=== PATIENT | female | born 1930 | race Caucasian/White ===

== ENCOUNTER 2019-10-14 12:45 | Inpatient (IN) | payer MEDICARE, BC ==
[2019-10-14] MEDS ORDERED: Carboxymethylcellulose Sodium 0.5% Ophth Soln 15 ML Bottle EYEBOTH PRN (14:08)
[2019-10-14] MEDS ORDERED: Polyvinyl Alcohol 1.4%/Povidone 0.6% Ophth Soln 0.4 ML Box of 30 EYEBOTH PRN (14:12)
--- NOTE | 2019-10-14 15:16 | PCM.HP.2 ---
H&P History of Present Illness - General Date of Service: 10/14/19 Admit Problem/Dx: Admission Diagnosis/Problem Admission Diagnosis/Problem Fracture of left pelvis Source of Information: Patient, Old Records, Provider - History of Present Illness Initial Comments - Free Text/Narative: Elaina transferred from [facility] for swing bed placement for rehab services. She sustained a fall on 10/10, this had been her second fall within the past week, was found to have left sacral fracture that extends into the left SI joint, Orthopedic recommended conservative management with PT/OT. She found to have UTI with E. coli., was started on Ciprofloxacin 250 mg bid on 10/11 evening, received 4 doses at [facility], last dose this morning. She had hypokalemia which was corrected during her acute stay. Hemoglobin remained stable at 10. She has bruising on her left buttock/sacral area, left greene. 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 Lives independently at home alone, plan to go home with her daughter once ready for discharge. Pain has been controlled with Lidocaine patches(2) to sacral area, Tylenol and Tramadol as needed. She last took Tramadol this morning about 945 per patient and took 2 Tylenol at 3468-7930 prior to arrival to [place]. She is very hard of hearing, has bilateral hearing aids in place. - Related Data Allergies/Adverse Reactions: Allergies Allergy/AdvReac Type Severity Reaction Status Date / Time acetaminophen Allergy Confusion Verified 10/14/19 14:13 [From Tylenol PM] codeine Allergy Confusion Verified 10/14/19 14:13 diphenhydramine Allergy Confusion Verified 10/14/19 14:13 [From Benadryl Allergy] lorazepam [From Ativan] Allergy Confusion Verified 10/14/19 14:13 promethazine [From Phenergan] Allergy Confusion Verified 10/14/19 14:14 Home Medications: Home Meds Acetaminophen 650 mg PO TID 10/14/19 [History] Aspirin [Ecotrin EC] 325 mg PO BEDTIME 10/14/19 [History] Cholecalciferol (Vitamin D3) [Vitamin D3] 2,000 unit PO DAILY 10/14/19 [History] Docusate Sodium [Colace] 100 mg PO BID PRN 10/14/19 [History] Escitalopram [Lexapro] 10 mg PO BEDTIME 10/14/19 [History] Furosemide 80 mg PO DAILY 10/14/19 [History] Glycerin/Propylene Glycol [Artificial Tears Drops] 1 drop EYEBOTH BID PRN 10/14/19 [History] Lidocaine 5% [Lidoderm 5%] 2 patch TOP DAILY 10/14/19 [History] Lutein/Min/Vit C/Vit E Acetate [Ocuvite Lutein] 1 cap PO DAILY 10/14/19 [History] Multivitamin [Multivitamins] 1 each PO DAILY 10/14/19 [History] Pantoprazole [ProTONIX] 40 mg PO DAILY 10/14/19 [History] Potassium Chloride 20 meq PO DAILY 10/14/19 [History] Past Medical History HEENT History: Reports: Cataract, Hard of Hearing, Impaired Vision, Macular Degeneration Cardiovascular History: Reports: Afib, Hypertension Gastrointestinal History: Reports: GERD Genitourinary History: Reports: Urinary Incontinence SEQUINS SLINGER History: Reports: Other OB/BYN History: 6 children Musculoskeletal History: Reports: Amputation, Arthritis, Fracture, Other (See Below) Other Musculoskeletal History: Right lower leg amputation. - Infectious Disease History Infectious Disease History: Reports: Chicken Pox, Measles, Mumps, Scarlet Fever, Shingles - Past Surgical History HEENT Surgical History: Reports: Cataract Surgery Cardiovascular Surgical History: Reports: None GI Surgical History: Reports: Colonoscopy Musculoskeletal Surgical History: Reports: Amputation Social & Family History - Family History Family Medical History: Noncontributory - Tobacco Use Smoking Status *Q: Never Smoker - Caffeine Use Caffeine Use: Reports: Coffee - Recreational Drug Use Recreational Drug Use: No H&P Review of Systems - Review of Systems: Review Of Systems: See Below General: Reports: No Symptoms HEENT: Reports: No Symptoms Pulmonary: Reports: No Symptoms Cardiovascular: Reports: No Symptoms Gastrointestinal: Reports: No Symptoms Genitourinary: Reports: Burning Musculoskeletal: Reports: Joint Pain (left sacral/buttock) Skin: Reports: Bruising (left buttock/sacrum, left greene), Other (scar with muscle deformity on left medial calf for lawn acid remover injury 23 yr ago.) Psychiatric: Reports: No Symptoms Neurological: Reports: No Symptoms Hematologic/Lymphatic: Reports: Anemia. Denies: Easy Bleeding, Easy Bruising Immunologic: Reports: No Symptoms Exam - Exam Exam: See Below - Vital Signs Vital Signs: Last Vital Signs Temp 97.5 F 10/14/19 13:42 Pulse 81 10/14/19 13:42 Resp 18 10/14/19 13:42 BP 130/76 10/14/19 13:42 Pulse Ox 93 L 10/14/19 13:42 Weight: 138 lb 3.2 oz - Exam General: Alert, Oriented, Cooperative. No: Mild Distress HEENT: PERRLA, Conjunctiva Clear, EOMI, Hearing Intact, Mucosa Moist & [place], Normal Nasal Septum, Posterior Pharynx Clear, TMs Clear, Glasses Neck: Supple, Trachea Midline Lungs: Clear to Auscultation, Normal Respiratory Effort Cardiovascular: Regular Rate, Irregular Rhythm GI/Abdominal Exam: Normal Bowel Sounds, Soft, Non-Tender, No Distention (Female) Exam: Deferred Rectal (Female) Exam: Deferred Back Exam: Other (ecchymosis of left buttock extends up sacrum/SI joint) Extremities: No Pedal Edema (LLE), Other (Right above knee amputation, muscle deformity underlying left medial calf scar from her previous lawn acid remover injury) Peripheral Pulses: 2+: Radial (L), Radial (R), Posterior Tibial (L), Dorsalis Pedis (L) Skin: Warm, Dry, Ecchymosis (Left buttock, sacrum/SI joint, left medial greene) Neurological: Cranial Nerves Intact, Normal Speech Psychiatric: Normal Affect, Normal Mood Sepsis Event Note - Evaluation Sepsis Screening Result: No Definite Risk - Focused Exam Vital Signs: Vital Signs Temp Pulse Resp BP Pulse Ox 10/14/19 13:42 97.5 F 81 18 130/76 93 L Date Exam was Performed: 10/14/19 Time Exam was Performed: 15:09 *Q Meaningful Use (ADM) - VTE *Q VTE Pharmacological Contraindications *Q: Risk of Bleeding VTE Anticoagulation Contraindications: Medical/Procedure Contrai - VTE Risk Assess *Q Each Risk Factor Represents 3 Points: Age 75 Years or Greater Total Score 3 Point Risk Factors: 3 Each Risk Factor Represents 5 Points: Hip, Pelvis or Leg Fracture, Less than 1 month Total Score 5 Point Risk Factors: 5 - Problem List (1) Fracture of pelvic bone without disruption of posterior arch of pelvic ring SNOMED Code(s): 537418244 ICD Code: S32.9XXA - FRACTURE OF UNSP PARTS OF LUMBOSACRAL SPINE AND PELVIS, INIT Status: Acute Current Visit: Yes (2) Fall SNOMED Code(s): 1835962, 181050974 ICD Code: W19.XXXA - UNSPECIFIED FALL, INITIAL ENCOUNTER Status: Acute Current Visit: Yes (3) Status post above-knee amputation of right lower extremity SNOMED Code(s): 849195364714654, 76765700, 003477361046028 ICD Code: Z89.611 - ACQUIRED ABSENCE OF RIGHT LEG ABOVE KNEE Status: Acute Current Visit: Yes (4) CAD (coronary artery disease) SNOMED Code(s): 43868200 ICD Code: I25.10 - ATHSCL HEART DISEASE OF [place] CORONARY ARTERY W/O ANG PCTRS Status: Acute Current Visit: Yes (5) Diastolic CHF SNOMED Code(s): 086727926, 281051410 ICD Code: I50.30 - UNSPECIFIED DIASTOLIC (CONGESTIVE) HEART FAILURE Status: Acute Current Visit: Yes (6) Atrial fibrillation SNOMED Code(s): 89217120 ICD Code: I48.91 - UNSPECIFIED ATRIAL FIBRILLATION Status: Acute Current Visit: Yes (7) History of intracranial hemorrhage SNOMED Code(s): 38183447515225972 ICD Code: Z86.79 - PERSONAL HISTORY OF OTHER DISEASES OF THE CIRCULATORY SYSTEM Status: Acute Current Visit: Yes Problem List Initiated/Reviewed/Updated: Yes Orders Last 24hrs: Active Orders 24 hr Category Date Time Status Patient Status [ADT] Routine ADT 10/14/19 13:42 Active Antiembolic Devices [RC] .Routine Care 10/14/19 13:42 Active Height and Weight [RC] WEEKLY Care 10/14/19 13:42 Active Oxygen Therapy [RC] PRN Care 10/14/19 13:42 Active Up With Assistance [RC] ASDIRECTED Care 10/14/19 13:42 Active Up to Chair [RC] ASDIRECTED Care 10/14/19 13:42 Active VTE/DVT Education [RC] Per Unit Routine Care 10/14/19 13:42 Active Vital Signs [RC] PER UNIT ROUTINE Care 10/14/19 13:42 Active OT Evaluation and Treatment [CONS] Routine Cons 10/16/19 06:00 Active PT Evaluation and Treatment [CONS] Routine Cons 10/16/19 06:00 Active Regular Diet [DIET] Diet 10/14/19 Dinner Active ALPRAZolam [Xanax] Med 10/14/19 14:09 Active 0.25 mg PO BID PRN Acetaminophen [Tylenol Extra Strength] Med 10/14/19 18:00 Active 500 mg PO Q6H Aspirin [Ecotrin] Med 10/14/19 17:00 Active 325 mg PO QPM Carboxymethylcellulose Sodium [Refresh Tears 0.5%] Med 10/14/19 14:08 Active 0 ml EYEBOTH TID PRN Cholecalciferol (Vitamin D3) [Vitamin D3] Med 10/15/19 09:00 Active 50 mcg PO DAILY Ciprofloxacin [Ciprofloxacin HCl] Med 10/14/19 21:00 Active 250 mg PO BID Docusate Sodium [Colace] Med 10/14/19 14:07 Active 100 mg PO BID PRN Escitalopram [Lexapro] Med 10/14/19 17:00 Active 10 mg PO QPM Furosemide [Lasix] Med 10/15/19 09:00 Active 80 mg PO DAILY Ibuprofen [Motrin] Med 10/14/19 18:00 Active 200 mg PO Q6H Lidocaine 5% [Lidoderm 5%] Med 10/15/19 09:00 Active 1,400 mg TOP DAILY Lutein/Min/Vit C/Vit E Acetate [Ocuvite Lutein] Med 10/15/19 09:00 Active 1 each PO DAILY Multivitamins [Tab-A-Manuel] Med 10/15/19 09:00 Active 1 tab PO DAILY Pantoprazole [ProTONIX] Med 10/15/19 06:00 Active 40 mg PO 0600 Polyvinyl Alcohol/Povidone [Refresh] Med 10/14/19 14:12 Active 0 each EYEBOTH TID PRN Potassium Chloride [Klor-Con M20] Med 10/15/19 09:00 Active 20 meq PO DAILY Remove Patch Med 10/15/19 21:00 Active 1 ea TRDERM Q24H traMADol [Ultram] Med 10/14/19 14:14 Active 50 mg PO Q6H PRN Anticoagulation Contraindications VTE [AST] Per Unit Oth 10/14/19 13:42 Ordered Routine Antiembolic Hose [OM.PC] Per Unit Routine Oth 10/14/19 14:00 Ordered Resuscitation Status Routine Resus Stat 10/14/19 13:42 Ordered Medication Orders Acetaminophen (Tylenol Extra Strength) 500 mg PO Q6H [facility] Alprazolam (Xanax) 0.25 mg PO BID PRN PRN Reason: Anxiety Artificial Tears (Refresh Tears 0.5%) 0 ml EYEBOTH TID PRN PRN Reason: Dry Eyes Artificial Tears (Refresh) 0 each EYEBOTH TID PRN PRN Reason: Dry Eyes Aspirin (Ecotrin) 325 mg PO QPM [facility] Cholecalciferol (Vitamin D3) 50 mcg PO DAILY [facility] Ciprofloxacin (Ciprofloxacin Hcl) 250 mg PO BID [facility] Stop: 10/18/19 21:00 Docusate Sodium (Colace) 100 mg PO BID PRN PRN Reason: Constipation Escitalopram Oxalate (Lexapro) 10 mg PO QPM [facility] Furosemide (Lasix) 80 mg PO DAILY [facility] Ibuprofen (Motrin) 200 mg PO Q6H [facility] Lidocaine (Lidoderm 5%) 1,400 mg TOP DAILY [facility] Miscellaneous Information (Remove Patch) 1 ea TRDERM Q24H [facility] Multivitamins/Minerals/Vitamin C (Tab-A-Manuel) 1 tab PO DAILY [facility] Pantoprazole Sodium (Protonix) 40 mg PO 0600 [facility] Potassium Chloride (Klor-Con M20) 20 meq PO DAILY [facility] Tramadol HCl (Ultram) 50 mg PO Q6H PRN PRN Reason: Pain (moderate 4-6) Vit C/Vit E/Zinc/Copper/Lutein (Ocuvite Lutein) 1 each PO DAILY [facility] - Mortality Measure Prognosis:: Good
[2019-10-14] MEDS: traMADol 50 MG Tab PO PRN ×2 (16:58→23:04)
[2019-10-14] MEDS: Aspirin 325 MG Tab.EC PO SCH (17:13)
[2019-10-14] MEDS: Escitalopram 10 MG Tab PO SCH (17:13)
[2019-10-14] MEDS: Acetaminophen 500 MG Tab PO SCH (17:13)
[2019-10-14] MEDS: Ibuprofen 200 MG Tab PO SCH (17:13)
[2019-10-14] MEDS: REMOVE LIDOCAINE TRDERM SCH (21:45)
[2019-10-14] MEDS: Ciprofloxacin 250 MG Tab PO SCH (21:54)
[2019-10-15] MEDS: Ibuprofen 200 MG Tab PO SCH ×4 (00:15→17:47)
[2019-10-15] MEDS: Acetaminophen 500 MG Tab PO SCH ×4 (00:16→17:48)
[2019-10-15] MEDS: Pantoprazole 40 MG Tab.CR PO SCH (06:15)
[2019-10-15] MEDS: traMADol 50 MG Tab PO PRN ×3 (07:54→21:07)
[2019-10-15] MEDS: Potassium Chloride 20 MEQ Tab.ER PO SCH (08:03)
[2019-10-15] MEDS: Multivitamin Tab PO SCH (08:03)
[2019-10-15] MEDS: Ciprofloxacin 250 MG Tab PO SCH ×2 (08:03→21:07)
[2019-10-15] MEDS: Furosemide 80 MG Tab PO SCH (08:03)
[2019-10-15] MEDS: Cholecalciferol (Vitamin D3) 25 MCG Tab PO SCH (08:10)
[2019-10-15] MEDS ORDERED: Lutein/Minerals/Vitamin C/Vitamin E Acetate Cap PO SCH (09:00)
[2019-10-15] MEDS: Lidocaine 5% 700 MG Patch TOP SCH (11:06)
[2019-10-15] MEDS: Beta-Carotene (Vitamin A) w/Vitamin C & E plus Minerals Tab PO SCH (11:40)
[2019-10-15] MEDS: ALPRAZolam 0.25 MG Tab PO PRN (15:14)
[2019-10-15] MEDS: Aspirin 325 MG Tab.EC PO SCH (17:47)
[2019-10-15] MEDS: Escitalopram 10 MG Tab PO SCH (17:47)
[2019-10-15] MEDS ORDERED: REMOVE LIDOCAINE TRDERM SCH (21:00)
[2019-10-15] MEDS: REMOVE LIDOCAINE TRDERM SCH (21:24)
[2019-10-16] MEDS: Ibuprofen 200 MG Tab PO SCH ×5 (00:19→23:57)
[2019-10-16] MEDS: Acetaminophen 500 MG Tab PO SCH ×5 (00:19→23:58)
[2019-10-16] MEDS: Pantoprazole 40 MG Tab.CR PO SCH (05:49)
[2019-10-16] MEDS: traMADol 50 MG Tab PO PRN ×2 (06:55→15:29)
[2019-10-16] MEDS: Potassium Chloride 20 MEQ Tab.ER PO SCH (09:41)
[2019-10-16] MEDS: Ciprofloxacin 250 MG Tab PO SCH ×2 (09:41→20:16)
[2019-10-16] MEDS: Furosemide 80 MG Tab PO SCH (09:41)
[2019-10-16] MEDS: Cholecalciferol (Vitamin D3) 25 MCG Tab PO SCH (09:42)
[2019-10-16] MEDS: Lidocaine 5% 700 MG Patch TOP SCH (09:42)
[2019-10-16] MEDS: Multivitamin Tab PO SCH (09:42)
[2019-10-16] MEDS: Beta-Carotene (Vitamin A) w/Vitamin C & E plus Minerals Tab PO SCH (09:42)
[2019-10-16] MEDS: Escitalopram 10 MG Tab PO SCH (16:54)
[2019-10-16] MEDS: Aspirin 325 MG Tab.EC PO SCH (16:55)
[2019-10-16] MEDS: REMOVE LIDOCAINE TRDERM SCH (20:19)
[2019-10-17] MEDS: Ibuprofen 200 MG Tab PO SCH ×3 (06:07→17:08)
[2019-10-17] MEDS: Acetaminophen 500 MG Tab PO SCH ×3 (06:08→17:08)
[2019-10-17] MEDS: Pantoprazole 40 MG Tab.CR PO SCH (06:08)
[2019-10-17] MEDS: Furosemide 80 MG Tab PO SCH (08:50)
[2019-10-17] MEDS: Lidocaine 5% 700 MG Patch TOP SCH (08:50)
[2019-10-17] MEDS: Potassium Chloride 20 MEQ Tab.ER PO SCH (08:50)
[2019-10-17] MEDS: Ciprofloxacin 250 MG Tab PO SCH ×2 (08:50→20:23)
[2019-10-17] MEDS: Cholecalciferol (Vitamin D3) 25 MCG Tab PO SCH (08:51)
[2019-10-17] MEDS: Multivitamin Tab PO SCH (08:51)
[2019-10-17] MEDS: Beta-Carotene (Vitamin A) w/Vitamin C & E plus Minerals Tab PO SCH (08:51)
[2019-10-17] MEDS: traMADol 50 MG Tab PO PRN ×2 (08:55→17:08)
[2019-10-17] MEDS: Aspirin 325 MG Tab.EC PO SCH (17:08)
[2019-10-17] MEDS: Docusate Sodium 100 MG Cap PO PRN (17:08)
[2019-10-17] MEDS: Escitalopram 10 MG Tab PO SCH (17:08)
[2019-10-17] MEDS: REMOVE LIDOCAINE TRDERM SCH (20:25)
[2019-10-18] MEDS: Ibuprofen 200 MG Tab PO SCH ×4 (00:34→17:40)
[2019-10-18] MEDS: Acetaminophen 500 MG Tab PO SCH ×4 (00:35→17:40)
[2019-10-18] MEDS: Pantoprazole 40 MG Tab.CR PO SCH (05:39)
[2019-10-18] MEDS: Ciprofloxacin 250 MG Tab PO SCH ×2 (08:41→20:01)
[2019-10-18] MEDS: Potassium Chloride 20 MEQ Tab.ER PO SCH (08:41)
[2019-10-18] MEDS: Lidocaine 5% 700 MG Patch TOP SCH (08:42)
[2019-10-18] MEDS: Cholecalciferol (Vitamin D3) 25 MCG Tab PO SCH (08:42)
[2019-10-18] MEDS: Multivitamin Tab PO SCH (08:42)
[2019-10-18] MEDS: Beta-Carotene (Vitamin A) w/Vitamin C & E plus Minerals Tab PO SCH (08:42)
[2019-10-18] MEDS: Furosemide 80 MG Tab PO SCH (08:42)
[2019-10-18] MEDS: traMADol 50 MG Tab PO PRN (08:46)
[2019-10-18] MEDS: Docusate Sodium 100 MG Cap PO PRN (08:47)
[2019-10-18] MEDS: traMADol 50 MG Tab PO SCH ×2 (14:19→19:59)
[2019-10-18] MEDS: Escitalopram 10 MG Tab PO SCH (17:41)
[2019-10-18] MEDS: Aspirin 325 MG Tab.EC PO SCH (17:41)
[2019-10-18] MEDS: REMOVE LIDOCAINE TRDERM SCH (20:01)
[2019-10-19] MEDS: Ibuprofen 200 MG Tab PO SCH ×2 (00:57→06:03)
[2019-10-19] MEDS: Acetaminophen 500 MG Tab PO SCH ×4 (00:58→18:11)
[2019-10-19] MEDS: traMADol 50 MG Tab PO SCH ×3 (01:00→08:27)
[2019-10-19] MEDS: Pantoprazole 40 MG Tab.CR PO SCH (06:04)
[2019-10-19] MEDS: Potassium Chloride 20 MEQ Tab.ER PO SCH (08:17)
[2019-10-19] MEDS: Furosemide 80 MG Tab PO SCH (08:17)
[2019-10-19] MEDS: Beta-Carotene (Vitamin A) w/Vitamin C & E plus Minerals Tab PO SCH (08:20)
[2019-10-19] MEDS: Multivitamin Tab PO SCH (08:20)
[2019-10-19] MEDS: Lidocaine 5% 700 MG Patch TOP SCH (08:20)
[2019-10-19] MEDS: Cholecalciferol (Vitamin D3) 25 MCG Tab PO SCH (08:21)
[2019-10-19] MEDS ORDERED: Naproxen 250 MG Tab PO PRN (09:09)
[2019-10-19] MEDS: Naproxen 250 MG Tab PO SCH ×2 (14:02→20:18)
--- NOTE | 2019-10-19 14:04 | PCM.PN ---
- General Info Date of Service: 10/19/19 Subjective Update: Elaina is having more confusion since Tramadol was scheduled to try to control her pain, feels foggy in her thoughts, not sure if she had a bad dream, some tangential thought processes this morning. Pain is tolerable when in bed but intolerable when she is up in wheelchair or doing transfers. Is more teary today, down due to her condition. Therapy notified me that she does not use her prosthetic at home, just when out in public, but has everything made for her at home to use wheelchair. She transfers from her chair to bed and toilet, cabinets are low. Functional Status: Reports: Tolerating Diet - Patient Data Vitals - Most Recent: Last Vital Signs Temp 97.9 F 10/19/19 08:35 Pulse 72 10/19/19 08:35 Resp 18 10/19/19 08:35 BP 128/74 10/19/19 08:35 Pulse Ox 96 10/19/19 08:35 Weight - Most Recent: 138 lb 3.2 oz Lab Results Last 24 Hours: Laboratory Results - last 24 hr 10/19/19 10/19/19 Range/Units 11:30 11:30 WBC 6.7 (4.5-12.0) X10-3/uL RBC 3.69 (3.23-5.20) x10(6)uL Hgb 11.2 L (11.5-15.5) g/dL Hct 33.8 (30.0-51.3) % MCV 91.6 (80-96) fL MCH 30.3 (27.7-33.6) pg MCHC 33.1 (32.2-35.4) g/dL RDW 12.4 (11.5-15.5) % Plt Count 260 (125-369) X10(3)uL MPV 7.4 (7.4-10.4) fL Neut % (Auto) 74.7 (46-82) % Lymph % (Auto) 10.2 L (13-37) % [place] % (Auto) 11.7 (4-12) % Eos % (Auto) 3 (1.0-5.0) % Baso % (Auto) 1 (0-2) % Neut # (Auto) 5.0 (1.6-8.3) # Lymph # (Auto) 0.7 (0.6-5.0) # [place] # (Auto) 0.8 (0.0-1.3) # Eos # (Auto) 0.2 (0.0-0.8) # Baso # (Auto) 0.0 (0.0-0.2) # Sodium 138 (135-145) mmol/L Potassium 4.0 (3.5-5.3) mmol/L Chloride 101 (100-110) mmol/L Carbon Dioxide 31 (21-32) mmol/L BUN 23 H (7-18) mg/dL Creatinine 0.8 (0.55-1.02) mg/dL Est Cr Clr Drug Dosing 41.97 mL/min Estimated GFR (MDRD) > 60 (>60) BUN/Creatinine Ratio 28.8 H (9-20) Glucose 111 (80-116) mg/dL Calcium 8.8 (8.6-10.2) mg/dL Med Orders - Current: Current Medications Acetaminophen (Tylenol Extra Strength) 500 mg PO Q6H [facility] Last Admin: 10/19/19 12:42 Dose: 500 mg Documented by: Alprazolam (Xanax) 0.25 mg PO BID PRN PRN Reason: Anxiety Last Admin: 10/15/19 15:14 Dose: 0.25 mg Documented by: Artificial Tears (Refresh Tears 0.5%) 0 ml EYEBOTH TID PRN PRN Reason: Dry Eyes Artificial Tears (Refresh) 0 each EYEBOTH TID PRN PRN Reason: Dry Eyes Aspirin (Ecotrin) 325 mg PO QPM [facility] Last Admin: 10/18/19 17:41 Dose: 325 mg Documented by: Cholecalciferol (Vitamin D3) 50 mcg PO DAILY [facility] Last Admin: 10/19/19 08:21 Dose: 50 mcg Documented by: Docusate Sodium (Colace) 100 mg PO BID PRN PRN Reason: Constipation Last Admin: 10/18/19 08:47 Dose: 100 mg Documented by: Escitalopram Oxalate (Lexapro) 20 mg PO QPM [facility] Furosemide (Lasix) 80 mg PO DAILY [facility] Last Admin: 10/19/19 08:17 Dose: 80 mg Documented by: Lidocaine (Lidoderm 5%) 1,400 mg TOP DAILY [facility] Last Admin: 10/19/19 08:20 Dose: 1,400 mg Documented by: Miscellaneous Information (Remove Patch) 1 ea TRDERM Q24H [facility] Last Admin: 10/18/19 20:01 Dose: 1 ea Documented by: Multivitamins/Minerals (Prosight) 1 tab PO DAILY [facility] Last Admin: 10/19/19 08:20 Dose: 1 tab Documented by: Multivitamins/Minerals/Vitamin C (Tab-A-Manuel) 1 tab PO DAILY [facility] Last Admin: 10/19/19 08:20 Dose: 1 tab Documented by: Naproxen (Naprosyn) 250 mg PO BID [facility] Pantoprazole Sodium (Protonix) 40 mg PO 0600 [facility] Last Admin: 10/19/19 06:04 Dose: 40 mg Documented by: Potassium Chloride (Klor-Con M20) 20 meq PO DAILY [facility] Last Admin: 10/19/19 08:17 Dose: 20 meq Documented by: Discontinued Medications Ciprofloxacin (Ciprofloxacin Hcl) 250 mg PO BID [facility] Stop: 10/18/19 21:00 Last Admin: 10/18/19 20:01 Dose: 250 mg Documented by: Escitalopram Oxalate (Lexapro) 10 mg PO QPM [facility] Last Admin: 10/18/19 17:41 Dose: 10 mg Documented by: Ibuprofen (Motrin) 200 mg PO Q6H [facility] Last Admin: 10/19/19 06:03 Dose: 200 mg Documented by: Miscellaneous Information (Remove Patch) 1 ea TRDERM Q24H [facility] Naproxen (Naprosyn) 250 mg PO Q12H PRN PRN Reason: Pain Tramadol HCl (Ultram) 50 mg PO Q6H PRN PRN Reason: Pain (moderate 4-6) Last Admin: 10/18/19 08:46 Dose: 50 mg Documented by: Tramadol HCl (Ultram) 50 mg PO Q6H [facility] Last Admin: 10/19/19 08:27 Dose: Not Given Documented by: Vit C/Vit E/Zinc/Copper/Lutein (Ocuvite Lutein) 1 each PO DAILY [facility] Last Admin: 10/15/19 12:37 Dose: Not Given Documented by: - Exam General: Alert, Cooperative (confused, slurred speech but no facial droop) Lungs: Clear to Auscultation, Normal Respiratory Effort Cardiovascular: Regular Rate, Regular Rhythm GI/Abdominal Exam: Normal Bowel Sounds, Soft, Non-Tender, No Distention Neurological: Normal Tone (moves 3 extremities equally, no facial droop.) Psy/Mental Status: Labile Mood, Depressed Sepsis Event Note - Evaluation Sepsis Screening Result: No Definite Risk - Focused Exam Vital Signs: Vital Signs Temp Pulse Resp BP Pulse Ox 10/19/19 08:35 97.9 F 72 18 128/74 96 Date Exam was Performed: 10/19/19 Time Exam was Performed: 13:57 - Problem List & Annotations (1) Fracture of pelvic bone without disruption of posterior arch of pelvic ring SNOMED Code(s): 115005745 Code(s): S32.9XXA - FRACTURE OF UNSP PARTS OF LUMBOSACRAL SPINE AND PELVIS, INIT Status: Acute Current Visit: Yes (2) Fall SNOMED Code(s): 0758597, 246644360 Code(s): W19.XXXA - UNSPECIFIED FALL, INITIAL ENCOUNTER Status: Acute Current Visit: Yes (3) Status post above-knee amputation of right lower extremity SNOMED Code(s): 818743401263935, 33624865, 710673278138700 Code(s): Z89.611 - ACQUIRED ABSENCE OF RIGHT LEG ABOVE KNEE Status: Acute Current Visit: Yes (4) CAD (coronary artery disease) SNOMED Code(s): 09577277 Code(s): I25.10 - ATHSCL HEART DISEASE OF [place] CORONARY ARTERY W/O ANG PCTRS Status: Acute Current Visit: Yes (5) Diastolic CHF SNOMED Code(s): 608484222, 239860691 Code(s): I50.30 - UNSPECIFIED DIASTOLIC (CONGESTIVE) HEART FAILURE Status: Acute Current Visit: Yes (6) Atrial fibrillation SNOMED Code(s): 42770965 Code(s): I48.91 - UNSPECIFIED ATRIAL FIBRILLATION Status: Acute Current Visit: Yes (7) History of intracranial hemorrhage SNOMED Code(s): 15171872485340953 Code(s): Z86.79 - PERSONAL HISTORY OF OTHER DISEASES OF THE CIRCULATORY SYSTEM Status: Acute Current Visit: Yes (8) Depression SNOMED Code(s): 23603027 Code(s): F32.9 - MAJOR DEPRESSIVE DISORDER, SINGLE EPISODE, UNSPECIFIED Status: Acute Current Visit: Yes - Problem List Review Problem List Initiated/Reviewed/Updated: Yes - My Orders Last 24 Hours: My Active Orders 10/19/19 14:00 Naproxen [Naprosyn] 250 mg PO BID 10/19/19 17:00 Escitalopram [Lexapro] 20 mg PO QPM - Plan Plan:: 1. Discontinue Tramadol, also had codeine adverse reaction of confusion. CBC/BMP done today to recheck her hemoglobin and creatinine as ordered on discharge from [facility], creatinine 0.8. Will start Naproxen 250 mg bid scheduled. 2. Depression: increase her Lexapro 20 mg at bedtime. Does have Xanax as needed for anxiety but has not been given since Sun. 3. Continue PT/OT for transfers.
[2019-10-19] MEDS: Aspirin 325 MG Tab.EC PO SCH (18:11)
[2019-10-19] MEDS: Escitalopram 20 MG Tab PO SCH (18:11)
[2019-10-19] MEDS: REMOVE LIDOCAINE TRDERM SCH (20:20)
[2019-10-19] MEDS ORDERED: traMADol 50 MG Tab PO ONE (22:15)
[2019-10-20] MEDS: Acetaminophen 500 MG Tab PO SCH ×4 (00:59→17:27)
[2019-10-20] MEDS: Pantoprazole 40 MG Tab.CR PO SCH (06:21)
[2019-10-20] MEDS: ALPRAZolam 0.25 MG Tab PO PRN ×2 (07:47→20:34)
[2019-10-20] MEDS: Naproxen 250 MG Tab PO SCH ×3 (07:48→20:34)
[2019-10-20] MEDS ORDERED: traMADol 50 MG Tab PO PRN (08:07)
[2019-10-20] MEDS: Potassium Chloride 20 MEQ Tab.ER PO SCH (10:14)
[2019-10-20] MEDS: Furosemide 80 MG Tab PO SCH (10:14)
[2019-10-20] MEDS: Lidocaine 5% 700 MG Patch TOP SCH (10:15)
[2019-10-20] MEDS: Beta-Carotene (Vitamin A) w/Vitamin C & E plus Minerals Tab PO SCH (10:15)
[2019-10-20] MEDS: Cholecalciferol (Vitamin D3) 25 MCG Tab PO SCH (10:15)
[2019-10-20] MEDS: Multivitamin Tab PO SCH (10:15)
--- NOTE | 2019-10-20 14:55 | PCM.SN.2 ---
- Free Text/Narrative Note: Called into Elaina's room due to writhing around in pain, in tears, becoming more and more anxious. Discussed with Elaina her concerns, our goals to get her pain controlled without oversedating her or depressing her respirations, so she is able to do therapies. Also discussed that she just had a UTI, putting a arabella ter in would not be advisable. Discussed with nursing, we will try doing transfers to bathroom during the day or when she has a bowel movement. Elaina stated that it was better on toilet rather than commode as far as having a bowel movement. Then at night we will use the bedside commode so she only has to make 2 transfers rather than 4. She has taken Amitriptyline in the past and made her "crazy". 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 She is willing to try Neurontin again for this pain. She was taking the prn Tramadol usually in the mornings and sometime late afternoon or bedtime but was sporadic, when she switched to scheduled q6h, she was more confused. Will change to BID schedule in am and at bedtime, with an as needed dose she can use in the afternoon if needed. Also discussed Xanax for her anxiety, she at most used 2 a day at home, but no more than 4 ever. We will try Xanax tid as needed. Also had increased her Lexapro back to 20 mg daily that she was on in December given the stress of her fracture, not being in her own home and all the isolation that ensued with the pandemic. Elaina was more settled and calm after our discussion, she is willing to work try the medications and work with us to find a combination that works.
[2019-10-20] MEDS: Escitalopram 20 MG Tab PO SCH (17:27)
[2019-10-20] MEDS: Aspirin 325 MG Tab.EC PO SCH (17:27)
[2019-10-20] MEDS: traMADol 50 MG Tab PO SCH (20:34)
[2019-10-20] MEDS: REMOVE LIDOCAINE TRDERM SCH (21:00)
[2019-10-21] MEDS: Acetaminophen 500 MG Tab PO SCH ×5 (00:04→23:51)
[2019-10-21] MEDS: traMADol 50 MG Tab PO PRN (05:00)
[2019-10-21] MEDS: Pantoprazole 40 MG Tab.CR PO SCH (05:01)
[2019-10-21] MEDS: Furosemide 80 MG Tab PO SCH (08:22)
[2019-10-21] MEDS: Potassium Chloride 20 MEQ Tab.ER PO SCH (08:22)
[2019-10-21] MEDS: Lidocaine 5% 700 MG Patch TOP SCH (08:23)
[2019-10-21] MEDS: Lidocaine 5% 700 MG Patch TRDERM SCH (08:23)
[2019-10-21] MEDS: Multivitamin Tab PO SCH (08:24)
[2019-10-21] MEDS: Naproxen 250 MG Tab PO SCH ×2 (08:24→21:01)
[2019-10-21] MEDS: Cholecalciferol (Vitamin D3) 25 MCG Tab PO SCH (08:24)
[2019-10-21] MEDS: Beta-Carotene (Vitamin A) w/Vitamin C & E plus Minerals Tab PO SCH (08:24)
[2019-10-21] MEDS: traMADol 50 MG Tab PO SCH ×2 (08:30→21:02)
[2019-10-21] MEDS: Escitalopram 20 MG Tab PO SCH (17:24)
[2019-10-21] MEDS: Aspirin 325 MG Tab.EC PO SCH (17:24)
[2019-10-21] MEDS: ALPRAZolam 0.25 MG Tab PO PRN (21:01)
[2019-10-21] MEDS: REMOVE LIDOCAINE TRDERM SCH (21:01)
[2019-10-22] MEDS: Pantoprazole 40 MG Tab.CR PO SCH (06:10)
[2019-10-22] MEDS: Acetaminophen 500 MG Tab PO SCH ×3 (06:10→17:18)
[2019-10-22] MEDS: Furosemide 80 MG Tab PO SCH (08:08)
[2019-10-22] MEDS: Lidocaine 5% 700 MG Patch TOP SCH (08:08)
[2019-10-22] MEDS: Potassium Chloride 20 MEQ Tab.ER PO SCH (08:08)
[2019-10-22] MEDS: Lidocaine 5% 700 MG Patch TRDERM SCH (08:09)
[2019-10-22] MEDS: Beta-Carotene (Vitamin A) w/Vitamin C & E plus Minerals Tab PO SCH (08:09)
[2019-10-22] MEDS: Naproxen 250 MG Tab PO SCH ×2 (08:09→21:04)
[2019-10-22] MEDS: Multivitamin Tab PO SCH (08:10)
[2019-10-22] MEDS: traMADol 50 MG Tab PO SCH ×2 (08:10→21:04)
[2019-10-22] MEDS: Cholecalciferol (Vitamin D3) 25 MCG Tab PO SCH (08:11)
[2019-10-22] MEDS: ALPRAZolam 0.25 MG Tab PO PRN ×2 (11:23→21:04)
[2019-10-22] MEDS: Cyclobenzaprine 10 MG Tab PO PRN (14:39)
[2019-10-22] MEDS: Escitalopram 20 MG Tab PO SCH (17:17)
[2019-10-22] MEDS: Aspirin 325 MG Tab.EC PO SCH (17:17)
[2019-10-22] MEDS: REMOVE LIDOCAINE TRDERM SCH (21:08)
[2019-10-23] MEDS: Acetaminophen 500 MG Tab PO SCH ×3 (00:10→13:15)
[2019-10-23] MEDS: Pantoprazole 40 MG Tab.CR PO SCH (05:21)
[2019-10-23] MEDS: Cyclobenzaprine 10 MG Tab PO PRN (07:49)
[2019-10-23] MEDS: traMADol 50 MG Tab PO PRN (07:50)
[2019-10-23] MEDS: ALPRAZolam 0.25 MG Tab PO PRN ×2 (07:50→13:15)
[2019-10-23] MEDS: traMADol 50 MG Tab PO SCH ×3 (10:05→20:46)
[2019-10-23] MEDS: Menthol/Methyl Salicylate 85 GM Tube TOP PRN ×2 (10:21→14:33)
[2019-10-23] MEDS: Naproxen 250 MG Tab PO SCH ×2 (10:28→20:42)
[2019-10-23] MEDS: Beta-Carotene (Vitamin A) w/Vitamin C & E plus Minerals Tab PO SCH (10:28)
[2019-10-23] MEDS: Furosemide 80 MG Tab PO SCH (10:28)
[2019-10-23] MEDS: Potassium Chloride 20 MEQ Tab.ER PO SCH (10:29)
[2019-10-23] MEDS: Cholecalciferol (Vitamin D3) 25 MCG Tab PO SCH (10:29)
[2019-10-23] MEDS: Multivitamin Tab PO SCH (10:29)
--- NOTE | 2019-10-23 11:48 | PCM.PN ---
- General Info Date of Service: 10/23/19 Subjective Update: Elaina had a good day on Wednesday, was up with OT stood 5x with walker. Tramadol bid with as needed daily dose has helped. States she doesn't know if Lidocaine patches are helping, asked about doing something like Icy Hot. Feels pain is more muscle. Also having more right upper arm pain as she uses that arm to pull herself over in bed. No shortness of breath, chest pain, nausea or vomiting. Also received more Xanax over the weekend as she was more anxious a bout her pain. Added Cyclobenzaprine yesterday but has not received a dose yet when rounded. Also started Gabapentin on Wednesday at bedtime as needed and not required it. She slept well last night, only get up once to urinate. She was also asking her daughter could bring in her eye patch for her right eye as it helps her read better. Functional Status: Reports: Tolerating Diet - Patient Data Vitals - Most Recent: Last Vital Signs Temp 98.2 F 10/23/19 07:20 Pulse 75 10/23/19 07:20 Resp 22 H 10/23/19 07:20 BP 160/86 H 10/23/19 07:20 Pulse Ox 96 10/23/19 07:20 Weight - Most Recent: 138 lb 3.2 oz Med Orders - Current: Current Medications Acetaminophen (Tylenol Extra Strength) 500 mg PO Q6H [facility] [place] Last Admin: 10/23/19 05:21 Dose: 500 mg Documented by: Alprazolam (Xanax) 0.25 mg PO TID PRN PRN Reason: anxiety Last Admin: 10/23/19 07:50 Dose: 0.25 mg Documented by: Artificial Tears (Refresh Tears 0.5%) 0 ml EYEBOTH TID PRN PRN Reason: Dry Eyes Artificial Tears (Refresh) 0 each EYEBOTH TID PRN PRN Reason: Dry Eyes Aspirin (Ecotrin) 325 mg PO QPM [facility] [place] Last Admin: 10/22/19 17:17 Dose: 325 mg Documented by: Cholecalciferol (Vitamin D3) 50 mcg PO DAILY [facility] [place] Last Admin: 10/23/19 10:29 Dose: 50 mcg Documented by: Cyclobenzaprine HCl (Flexeril) 5 mg PO TID PRN PRN Reason: Muscle Spasm Last Admin: 10/23/19 07:49 Dose: 5 mg Documented by: Docusate Sodium (Colace) 100 mg PO BID PRN PRN Reason: Constipation Last Admin: 10/18/19 08:47 Dose: 100 mg Documented by: Escitalopram Oxalate (Lexapro) 20 mg PO QPM [facility] [place] Last Admin: 10/22/19 17:17 Dose: 20 mg Documented by: Furosemide (Lasix) 80 mg PO DAILY [facility] [place] Last Admin: 10/23/19 10:28 Dose: 80 mg Documented by: Gabapentin (Neurontin) 100 mg PO BEDTIME PRN PRN Reason: Pain Lidocaine (Lidoderm 5%) 1,400 mg TOP DAILY [facility] [place] Last Admin: 10/22/19 08:08 Dose: 1,400 mg Documented by: Lidocaine (Lidoderm 5%) 700 mg TRDERM DAILY [facility] [place] Last Admin: 10/22/19 08:09 Dose: 700 mg Documented by: Methyl Salicylate (Icy Hot Cream) 0 gm TOP TID PRN PRN Reason: MUSCLE SORENESS Last Admin: 10/23/19 10:21 Dose: 1 applic Documented by: Miscellaneous Information (Remove Patch) 1 ea TRDERM Q24H [facility] [place] Last Admin: 10/22/19 21:08 Dose: 1 ea Documented by: Multivitamins/Minerals (Prosight) 1 tab PO DAILY [facility] [place] Last Admin: 10/23/19 10:28 Dose: 1 tab Documented by: Multivitamins/Minerals/Vitamin C (Tab-A-Manuel) 1 tab PO DAILY [facility] [place] Last Admin: 10/23/19 10:29 Dose: 1 tab Documented by: Naproxen (Naprosyn) 250 mg PO BID [facility] [place] Last Admin: 10/23/19 10:28 Dose: 250 mg Documented by: Pantoprazole Sodium (Protonix) 40 mg PO 0600 [facility] [place] Last Admin: 10/23/19 05:21 Dose: 40 mg Documented by: Potassium Chloride (Klor-Con M20) 20 meq PO DAILY [facility] [place] Last Admin: 10/23/19 10:29 Dose: 20 meq Documented by: Tramadol HCl (Ultram) 50 mg PO DAILY PRN PRN Reason: PAIN Last Admin: 10/23/19 07:50 Dose: 50 mg Documented by: Tramadol HCl (Ultram) 50 mg PO BID [facility] [place] Last Admin: 08/10/20 10:05 Dose: Not Given Documented by: Discontinued Medications Alprazolam (Xanax) 0.25 mg PO BID PRN PRN Reason: Anxiety Last Admin: 10/20/19 07:47 Dose: 0.25 mg Documented by: Ciprofloxacin (Ciprofloxacin Hcl) 250 mg PO BID [facility] [place] Stop: 10/18/19 21:00 Last Admin: 10/18/19 20:01 Dose: 250 mg Documented by: Escitalopram Oxalate (Lexapro) 10 mg PO QPM [facility] [place] Last Admin: 10/18/19 17:41 Dose: 10 mg Documented by: Ibuprofen (Motrin) 200 mg PO Q6H [facility] [place] Last Admin: 10/19/19 06:03 Dose: 200 mg Documented by: Miscellaneous Information (Remove Patch) 1 ea TRDERM Q24H [facility] [place] Naproxen (Naprosyn) 250 mg PO Q12H PRN PRN Reason: Pain Tramadol HCl (Ultram) 50 mg PO Q6H PRN PRN Reason: Pain (moderate 4-6) Last Admin: 10/18/19 08:46 Dose: 50 mg Documented by: Tramadol HCl (Ultram) 50 mg PO Q6H [facility] [place] Last Admin: 10/19/19 08:27 Dose: Not Given Documented by: Tramadol HCl (Ultram) 50 mg PO ONETIME ONE Stop: 10/19/19 22:16 Last Admin: 10/19/19 23:00 Dose: Not Given Documented by: Tramadol HCl (Ultram) 50 mg PO BID PRN PRN Reason: Pain Last Admin: 10/20/19 10:08 Dose: 50 mg Documented by: Vit C/Vit E/Zinc/Copper/Lutein (Ocuvite Lutein) 1 each PO DAILY [facility] [place] Last Admin: 10/15/19 12:37 Dose: Not Given Documented by: - Exam General: Alert, Oriented, Cooperative, No Acute Distress (sitting in her wheelchair, does lift herself up off of buttocks a few times during visit, states it helps.) Lungs: Clear to Auscultation, Normal Respiratory Effort Cardiovascular: Regular Rate, Regular Rhythm GI/Abdominal Exam: Normal Bowel Sounds, Soft, Non-Tender, No Distention Extremities: No Pedal Edema (LLE) Peripheral Pulses: 2+: Radial (L), Radial (R) Sepsis Event Note - Evaluation Sepsis Screening Result: No Definite Risk - Focused Exam Vital Signs: Vital Signs Temp Pulse Resp BP Pulse Ox 10/23/19 07:20 98.2 F 75 22 H 160/86 H 96 Date Exam was Performed: 10/23/19 Time Exam was Performed: 11:43 - Problem List & Annotations (1) Fracture of pelvic bone without disruption of posterior arch of pelvic ring SNOMED Code(s): 862229877 Code(s): S32.9XXA - FRACTURE OF UNSP PARTS OF LUMBOSACRAL SPINE AND PELVIS, INIT Status: Acute Current Visit: Yes (2) Fall SNOMED Code(s): 7875728, 325516585 Code(s): W19.XXXA - UNSPECIFIED FALL, INITIAL ENCOUNTER Status: Acute Current Visit: Yes (3) Status post above-knee amputation of right lower extremity SNOMED Code(s): 701813709645507, 86708430, 909034844250294 Code(s): Z89.611 - ACQUIRED ABSENCE OF RIGHT LEG ABOVE KNEE Status: Acute Current Visit: Yes (4) CAD (coronary artery disease) SNOMED Code(s): 83397615 Code(s): I25.10 - ATHSCL HEART DISEASE OF [place] CORONARY ARTERY W/O ANG PCTRS Status: Acute Current Visit: Yes (5) Diastolic CHF SNOMED Code(s): 218383784, 015431667 Code(s): I50.30 - UNSPECIFIED DIASTOLIC (CONGESTIVE) HEART FAILURE Status: Acute Current Visit: Yes (6) Atrial fibrillation SNOMED Code(s): 95886812 Code(s): I48.91 - UNSPECIFIED ATRIAL FIBRILLATION Status: Acute Current Visit: Yes (7) History of intracranial hemorrhage SNOMED Code(s): 24435024864435294 Code(s): Z86.79 - PERSONAL HISTORY OF OTHER DISEASES OF THE CIRCULATORY SYSTEM Status: Acute Current Visit: Yes (8) Depression SNOMED Code(s): 38166016 Code(s): F32.9 - MAJOR DEPRESSIVE DISORDER, SINGLE EPISODE, UNSPECIFIED Status: Acute Current Visit: Yes - Problem List Review Problem List Initiated/Reviewed/Updated: Yes - My Orders Last 24 Hours: My Active Orders 10/22/19 14:11 Cyclobenzaprine [Flexeril] 5 mg PO TID PRN 10/23/19 09:21 Menthol/Methyl Salicylate [Icy Hot Cream] 0 gm TOP TID PRN - Plan Plan:: 1.Pain: Naproxen 250 mg bid scheduled. Tramadol 50 mg bid, 1 tab daily as needed. Gabapentin 100 mg hs as needed(has not taken yet). Will hold Lidocaine patches and try Menthol muscle rub tid to sacrum and right upper arm. Tylenol 500 mg q6h. Cyclobenzaprine 5 mg tid as needed muscle spasm. 2. Depression: Lexapro 20 mg at bedtime. Xanax tid as needed. 3. Continue PT/OT. 4. Discussed eye patch with Manuela Hay, will talk with her daughter Karina. Care conference today at 1315. 5. History of Stroke: Aspirin 325 mg in evening.
[2019-10-23] MEDS: Escitalopram 20 MG Tab PO SCH (17:27)
[2019-10-23] MEDS: Acetaminophen 325 MG Tab PO SCH (17:27)
[2019-10-23] MEDS: Aspirin 325 MG Tab.EC PO SCH (17:27)
[2019-10-23] MEDS ORDERED: Acetaminophen 500 MG Tab PO SCH (18:00)
[2019-10-23] MEDS: Menthol/Methyl Salicylate 85 GM Tube TOP SCH (20:42)
[2019-10-23] MEDS ORDERED: traMADol 50 MG Tab PO SCH (21:00)
[2019-10-24] MEDS: Acetaminophen 325 MG Tab PO SCH ×4 (01:02→17:39)
[2019-10-24] MEDS: ALPRAZolam 0.25 MG Tab PO PRN ×3 (01:02→20:53)
[2019-10-24] MEDS: Pantoprazole 40 MG Tab.CR PO SCH (06:30)
[2019-10-24] MEDS: traMADol 50 MG Tab PO SCH ×3 (08:28→20:50)
[2019-10-24] MEDS: Menthol/Methyl Salicylate 85 GM Tube TOP SCH ×3 (08:28→20:51)
[2019-10-24] MEDS: Multivitamin Tab PO SCH (08:29)
[2019-10-24] MEDS: Furosemide 80 MG Tab PO SCH (08:29)
[2019-10-24] MEDS: Naproxen 250 MG Tab PO SCH ×2 (08:29→20:52)
[2019-10-24] MEDS: Cholecalciferol (Vitamin D3) 25 MCG Tab PO SCH (08:29)
[2019-10-24] MEDS: Potassium Chloride 20 MEQ Tab.ER PO SCH (08:29)
[2019-10-24] MEDS: Beta-Carotene (Vitamin A) w/Vitamin C & E plus Minerals Tab PO SCH (08:29)
[2019-10-24] MEDS: Cyclobenzaprine 10 MG Tab PO PRN (12:48)
[2019-10-24] MEDS: Escitalopram 20 MG Tab PO SCH (17:39)
[2019-10-24] MEDS: Aspirin 325 MG Tab.EC PO SCH (17:39)
[2019-10-24] MEDS: Gabapentin 100 MG Cap PO PRN (20:53)
[2019-10-25] MEDS: Acetaminophen 325 MG Tab PO SCH ×4 (05:57→17:29)
[2019-10-25] MEDS: Pantoprazole 40 MG Tab.CR PO SCH (05:57)
[2019-10-25] MEDS: traMADol 50 MG Tab PO SCH ×3 (08:14→20:42)
[2019-10-25] MEDS: Menthol/Methyl Salicylate 85 GM Tube TOP SCH ×3 (08:44→20:45)
[2019-10-25] MEDS: Beta-Carotene (Vitamin A) w/Vitamin C & E plus Minerals Tab PO SCH (08:45)
[2019-10-25] MEDS: Multivitamin Tab PO SCH (08:45)
[2019-10-25] MEDS: Naproxen 250 MG Tab PO SCH ×2 (08:45→20:46)
[2019-10-25] MEDS: Potassium Chloride 20 MEQ Tab.ER PO SCH (08:45)
[2019-10-25] MEDS: Cholecalciferol (Vitamin D3) 25 MCG Tab PO SCH (08:45)
[2019-10-25] MEDS: Furosemide 80 MG Tab PO SCH (08:45)
[2019-10-25] MEDS: Escitalopram 20 MG Tab PO SCH (17:29)
[2019-10-25] MEDS: Aspirin 325 MG Tab.EC PO SCH (17:29)
--- NOTE | 2019-10-25 18:21 | CT ---
INDICATION: Change in cognition. CT HEAD WITHOUT CONTRAST: Spiral 3.75 mm axial sections were obtained through the brain without contrast with sagittal and coronal reconstructions as well as axial reconstructions 10/25/19 and compared with previous examinations dated 10/11/19 and 06/18/17. Total exam DLP was 1348.07 mGy-cm. Vertebrobasilar and internal carotid artery calcifications are noted. The orbits appear to be intact. The mastoid air cells are well aerated. Retention cyst of small size is now seen in the base of the right maxillary antrum. Paranasal sinuses were otherwise well aerated. No cranial abnormality was identified. No shift of midline structures was noted. Sulci and ventricles are somewhat prominent, compatible with mild degree of generalized atrophy. White matter changes compatible with moderate microvascular disease are again noted. No gross interval change or new abnormal areas of density were identified - no bleeding site or hematoma was seen. IMPRESSION: 1. No acute intracranial abnormality. 2. Cerebrovascular disease with arterial calcifications and white matter changes compatible with moderate microvascular disease-type changes. 3. Generalized atrophy, at least of portion of which is compatible with the patient's age. Report was called to Dr. Nance at 1800 hours. [facility]
[2019-10-25] MEDS: Gabapentin 100 MG Cap PO PRN (20:43)
[2019-10-25] MEDS: ALPRAZolam 0.25 MG Tab PO PRN (20:43)
[2019-10-25] MEDS: Cyclobenzaprine 10 MG Tab PO PRN (20:43)
[2019-10-26] MEDS: Acetaminophen 325 MG Tab PO SCH ×5 (01:55→23:09)
[2019-10-26] MEDS: Pantoprazole 40 MG Tab.CR PO SCH (06:26)
[2019-10-26] MEDS: Potassium Chloride 20 MEQ Tab.ER PO SCH (08:28)
[2019-10-26] MEDS: Cholecalciferol (Vitamin D3) 25 MCG Tab PO SCH (08:28)
[2019-10-26] MEDS: Multivitamin Tab PO SCH (08:28)
[2019-10-26] MEDS: traMADol 50 MG Tab PO SCH ×3 (08:28→20:21)
[2019-10-26] MEDS: Beta-Carotene (Vitamin A) w/Vitamin C & E plus Minerals Tab PO SCH (08:28)
[2019-10-26] MEDS: Naproxen 250 MG Tab PO SCH ×2 (08:28→20:10)
[2019-10-26] MEDS: Furosemide 80 MG Tab PO SCH (08:28)
[2019-10-26] MEDS: Menthol/Methyl Salicylate 85 GM Tube TOP SCH ×3 (08:29→20:10)
[2019-10-26] MEDS: Aspirin 325 MG Tab.EC PO SCH (16:52)
[2019-10-26] MEDS: Escitalopram 20 MG Tab PO SCH (16:52)
[2019-10-26] MEDS: ALPRAZolam 0.25 MG Tab PO PRN (16:56)
[2019-10-26] MEDS: Gabapentin 100 MG Cap PO PRN (20:23)
[2019-10-27] MEDS: Acetaminophen 325 MG Tab PO SCH ×4 (05:03→23:02)
[2019-10-27] MEDS: Pantoprazole 40 MG Tab.CR PO SCH (05:03)
[2019-10-27] MEDS: Furosemide 80 MG Tab PO SCH (08:37)
[2019-10-27] MEDS: Naproxen 250 MG Tab PO SCH ×2 (08:37→20:20)
[2019-10-27] MEDS: Menthol/Methyl Salicylate 85 GM Tube TOP SCH ×3 (08:37→20:19)
[2019-10-27] MEDS: Potassium Chloride 20 MEQ Tab.ER PO SCH (08:37)
[2019-10-27] MEDS: traMADol 50 MG Tab PO SCH ×3 (08:37→20:24)
[2019-10-27] MEDS: Beta-Carotene (Vitamin A) w/Vitamin C & E plus Minerals Tab PO SCH (08:38)
[2019-10-27] MEDS: Cholecalciferol (Vitamin D3) 25 MCG Tab PO SCH (08:38)
[2019-10-27] MEDS: Multivitamin Tab PO SCH (08:38)
[2019-10-27] MEDS: Aspirin 325 MG Tab.EC PO SCH (17:14)
[2019-10-27] MEDS: Escitalopram 20 MG Tab PO SCH (17:15)
[2019-10-27] MEDS: Gabapentin 100 MG Cap PO PRN (20:25)
[2019-10-28] MEDS: Acetaminophen 325 MG Tab PO SCH ×4 (05:01→22:59)
[2019-10-28] MEDS: Pantoprazole 40 MG Tab.CR PO SCH (05:02)
[2019-10-28] MEDS: Menthol/Methyl Salicylate 85 GM Tube TOP SCH ×3 (08:06→20:19)
[2019-10-28] MEDS: traMADol 50 MG Tab PO SCH ×3 (08:06→20:15)
[2019-10-28] MEDS: ALPRAZolam 0.25 MG Tab PO PRN ×2 (08:06→22:49)
[2019-10-28] MEDS: Furosemide 80 MG Tab PO SCH (08:07)
[2019-10-28] MEDS: Potassium Chloride 20 MEQ Tab.ER PO SCH (08:07)
[2019-10-28] MEDS: Beta-Carotene (Vitamin A) w/Vitamin C & E plus Minerals Tab PO SCH (08:07)
[2019-10-28] MEDS: Multivitamin Tab PO SCH (08:07)
[2019-10-28] MEDS: Naproxen 250 MG Tab PO SCH ×2 (08:07→20:20)
[2019-10-28] MEDS: Cholecalciferol (Vitamin D3) 25 MCG Tab PO SCH (08:08)
[2019-10-28] MEDS: Escitalopram 20 MG Tab PO SCH (17:40)
[2019-10-28] MEDS: Aspirin 325 MG Tab.EC PO SCH (17:40)
[2019-10-28] MEDS: Gabapentin 100 MG Cap PO PRN (20:16)
[2019-10-29] MEDS: Acetaminophen 325 MG Tab PO SCH ×4 (05:37→23:30)
[2019-10-29] MEDS: Pantoprazole 40 MG Tab.CR PO SCH (05:38)
[2019-10-29] MEDS: traMADol 50 MG Tab PO SCH ×3 (08:07→20:28)
[2019-10-29] MEDS: Furosemide 80 MG Tab PO SCH (08:08)
[2019-10-29] MEDS: Potassium Chloride 20 MEQ Tab.ER PO SCH (08:08)
[2019-10-29] MEDS: Menthol/Methyl Salicylate 85 GM Tube TOP SCH ×3 (08:08→20:30)
[2019-10-29] MEDS: Naproxen 250 MG Tab PO SCH ×2 (08:08→20:31)
[2019-10-29] MEDS: Cholecalciferol (Vitamin D3) 25 MCG Tab PO SCH (08:09)
[2019-10-29] MEDS: Multivitamin Tab PO SCH (08:09)
[2019-10-29] MEDS: Beta-Carotene (Vitamin A) w/Vitamin C & E plus Minerals Tab PO SCH (08:09)
[2019-10-29] MEDS: Aspirin 325 MG Tab.EC PO SCH (17:33)
[2019-10-29] MEDS: Escitalopram 20 MG Tab PO SCH (17:33)
[2019-10-29] MEDS: Gabapentin 100 MG Cap PO PRN (20:32)
[2019-10-29] MEDS: ALPRAZolam 0.25 MG Tab PO PRN (20:32)
[2019-10-30] MEDS: Acetaminophen 325 MG Tab PO SCH ×3 (04:59→17:00)
[2019-10-30] MEDS: Pantoprazole 40 MG Tab.CR PO SCH (04:59)
[2019-10-30] MEDS: Potassium Chloride 20 MEQ Tab.ER PO SCH (08:10)
[2019-10-30] MEDS: Naproxen 250 MG Tab PO SCH ×2 (08:10→20:30)
[2019-10-30] MEDS: Beta-Carotene (Vitamin A) w/Vitamin C & E plus Minerals Tab PO SCH (08:10)
[2019-10-30] MEDS: traMADol 50 MG Tab PO SCH ×3 (08:10→20:28)
[2019-10-30] MEDS: Furosemide 80 MG Tab PO SCH (08:10)
[2019-10-30] MEDS: Multivitamin Tab PO SCH (08:10)
[2019-10-30] MEDS: Cholecalciferol (Vitamin D3) 25 MCG Tab PO SCH (08:11)
[2019-10-30] MEDS: Menthol/Methyl Salicylate 85 GM Tube TOP SCH ×3 (08:11→20:30)
[2019-10-30] MEDS: ALPRAZolam 0.25 MG Tab PO PRN ×2 (11:38→20:29)
[2019-10-30] MEDS: Escitalopram 20 MG Tab PO SCH (16:58)
[2019-10-30] MEDS: Aspirin 325 MG Tab.EC PO SCH (16:58)
[2019-10-30] MEDS: Cyclobenzaprine 10 MG Tab PO PRN (20:29)
[2019-10-30] MEDS: Gabapentin 100 MG Cap PO PRN (20:29)
[2019-10-31] MEDS: Acetaminophen 325 MG Tab PO SCH ×4 (00:36→17:26)
[2019-10-31] MEDS: Pantoprazole 40 MG Tab.CR PO SCH (05:06)
[2019-10-31] MEDS: Cyclobenzaprine 10 MG Tab PO PRN (06:04)
[2019-10-31] MEDS: ALPRAZolam 0.25 MG Tab PO PRN ×2 (06:04→20:18)
[2019-10-31] MEDS: traMADol 50 MG Tab PO SCH ×3 (08:51→20:21)
[2019-10-31] MEDS: Potassium Chloride 20 MEQ Tab.ER PO SCH (08:53)
[2019-10-31] MEDS: Beta-Carotene (Vitamin A) w/Vitamin C & E plus Minerals Tab PO SCH (08:53)
[2019-10-31] MEDS: Naproxen 250 MG Tab PO SCH ×2 (08:53→20:18)
[2019-10-31] MEDS: Furosemide 80 MG Tab PO SCH (08:53)
[2019-10-31] MEDS: Multivitamin Tab PO SCH (08:54)
[2019-10-31] MEDS: Cholecalciferol (Vitamin D3) 25 MCG Tab PO SCH (08:54)
[2019-10-31] MEDS: Menthol/Methyl Salicylate 85 GM Tube TOP SCH ×3 (09:19→20:17)
[2019-10-31] MEDS: Escitalopram 20 MG Tab PO SCH (17:26)
[2019-10-31] MEDS: Aspirin 325 MG Tab.EC PO SCH (17:26)
[2019-10-31] MEDS: Gabapentin 100 MG Cap PO PRN (20:18)
[2019-11-01] MEDS: Acetaminophen 325 MG Tab PO SCH ×5 (00:38→23:00)
[2019-11-01] MEDS: Pantoprazole 40 MG Tab.CR PO SCH (05:18)
[2019-11-01] MEDS: Menthol/Methyl Salicylate 85 GM Tube TOP SCH ×3 (08:21→20:17)
[2019-11-01] MEDS: Potassium Chloride 20 MEQ Tab.ER PO SCH (08:22)
[2019-11-01] MEDS: Beta-Carotene (Vitamin A) w/Vitamin C & E plus Minerals Tab PO SCH (08:23)
[2019-11-01] MEDS: Furosemide 80 MG Tab PO SCH (08:23)
[2019-11-01] MEDS: Naproxen 250 MG Tab PO SCH ×2 (08:23→20:17)
[2019-11-01] MEDS: Cholecalciferol (Vitamin D3) 25 MCG Tab PO SCH (08:24)
[2019-11-01] MEDS: Multivitamin Tab PO SCH (08:24)
[2019-11-01] MEDS: traMADol 50 MG Tab PO SCH ×3 (08:28→20:16)
[2019-11-01] MEDS: Escitalopram 20 MG Tab PO SCH (17:06)
[2019-11-01] MEDS: Aspirin 325 MG Tab.EC PO SCH (17:06)
[2019-11-01] MEDS: Gabapentin 100 MG Cap PO PRN (20:17)
[2019-11-01] MEDS: ALPRAZolam 0.25 MG Tab PO PRN (20:17)
[2019-11-02] MEDS: Pantoprazole 40 MG Tab.CR PO SCH (05:12)
[2019-11-02] MEDS: Acetaminophen 325 MG Tab PO SCH ×3 (05:12→17:00)
[2019-11-02] MEDS: traMADol 50 MG Tab PO SCH ×3 (07:56→20:36)
[2019-11-02] MEDS: Menthol/Methyl Salicylate 85 GM Tube TOP SCH ×3 (08:01→20:37)
[2019-11-02] MEDS: Potassium Chloride 20 MEQ Tab.ER PO SCH (08:02)
[2019-11-02] MEDS: Furosemide 80 MG Tab PO SCH (08:02)
[2019-11-02] MEDS: Beta-Carotene (Vitamin A) w/Vitamin C & E plus Minerals Tab PO SCH (08:02)
[2019-11-02] MEDS: Naproxen 250 MG Tab PO SCH ×2 (08:02→20:38)
[2019-11-02] MEDS: Multivitamin Tab PO SCH (08:02)
[2019-11-02] MEDS: Cholecalciferol (Vitamin D3) 25 MCG Tab PO SCH (08:03)
[2019-11-02] MEDS: Aspirin 325 MG Tab.EC PO SCH (16:54)
[2019-11-02] MEDS: Escitalopram 20 MG Tab PO SCH (16:54)
[2019-11-02] MEDS: Gabapentin 100 MG Cap PO PRN (20:38)
[2019-11-02] MEDS: ALPRAZolam 0.25 MG Tab PO PRN (20:38)
[2019-11-03] MEDS: Acetaminophen 325 MG Tab PO SCH ×5 (00:42→11:06)
[2019-11-03] MEDS: Pantoprazole 40 MG Tab.CR PO SCH (06:49)
[2019-11-03] MEDS: traMADol 50 MG Tab PO SCH (08:05)
[2019-11-03] MEDS: Cyclobenzaprine 10 MG Tab PO PRN (08:06)
[2019-11-03] MEDS: Potassium Chloride 20 MEQ Tab.ER PO SCH (08:08)
[2019-11-03] MEDS: Furosemide 80 MG Tab PO SCH (08:08)
[2019-11-03] MEDS: Menthol/Methyl Salicylate 85 GM Tube TOP SCH (08:08)
[2019-11-03] MEDS: Beta-Carotene (Vitamin A) w/Vitamin C & E plus Minerals Tab PO SCH (08:09)
[2019-11-03] MEDS: Multivitamin Tab PO SCH (08:09)
[2019-11-03] MEDS: Cholecalciferol (Vitamin D3) 25 MCG Tab PO SCH (08:09)
[2019-11-03] MEDS: Naproxen 250 MG Tab PO SCH (08:09)
--- NOTE | 2019-11-03 09:17 | PCM.PN ---
- General Info Date of Service: 11/03/19 Admission Dx/Problem (Free Text): Patient states she has a little bit of pain in her right leg which is limits amputated. No back pain, fevers, chills, shortness breath or cough. She says she is ready to go home. - Patient Data Vitals - Most Recent: Last Vital Signs Temp 97.1 F 11/03/19 07:52 Pulse 84 11/03/19 07:52 Resp 16 11/03/19 07:52 BP 148/84 H 11/03/19 07:52 Pulse Ox 97 11/03/19 07:52 Weight - Most Recent: 132 lb 8 oz Med Orders - Current: Current Medications Acetaminophen (Tylenol) 650 mg PO Q6H [facility] Last Admin: 11/03/19 06:49 Dose: 650 mg Documented by: Alprazolam (Xanax) 0.25 mg PO TID PRN PRN Reason: anxiety Last Admin: 11/02/19 20:38 Dose: 0.25 mg Documented by: Artificial Tears (Refresh Tears 0.5%) 0 ml EYEBOTH TID PRN PRN Reason: Dry Eyes Artificial Tears (Refresh) 0 each EYEBOTH TID PRN PRN Reason: Dry Eyes Aspirin (Ecotrin) 325 mg PO QPM [facility] Last Admin: 11/02/19 16:54 Dose: 325 mg Documented by: Cholecalciferol (Vitamin D3) 50 mcg PO DAILY [facility] Last Admin: 11/03/19 08:09 Dose: 50 mcg Documented by: Cyclobenzaprine HCl (Flexeril) 5 mg PO TID PRN PRN Reason: Muscle Spasm Last Admin: 11/03/19 08:06 Dose: 5 mg Documented by: Docusate Sodium (Colace) 100 mg PO BID PRN PRN Reason: Constipation Last Admin: 10/18/19 08:47 Dose: 100 mg Documented by: Escitalopram Oxalate (Lexapro) 20 mg PO QPM [facility] Last Admin: 11/02/19 16:54 Dose: 20 mg Documented by: Furosemide (Lasix) 80 mg PO DAILY [facility] Last Admin: 11/03/19 08:08 Dose: 80 mg Documented by: Gabapentin (Neurontin) 100 mg PO BEDTIME PRN PRN Reason: Pain Last Admin: 11/02/19 20:38 Dose: 100 mg Documented by: Methyl Salicylate (Icy Hot Cream) 0 gm TOP TID [facility] Last Admin: 11/03/19 08:08 Dose: 1 applic Documented by: Multivitamins/Minerals (Prosight) 1 tab PO DAILY [facility] Last Admin: 11/03/19 08:09 Dose: 1 tab Documented by: Multivitamins/Minerals/Vitamin C (Tab-A-Manuel) 1 tab PO DAILY [facility] Last Admin: 11/03/19 08:09 Dose: 1 tab Documented by: Naproxen (Naprosyn) 250 mg PO BID [facility] Last Admin: 11/03/19 08:09 Dose: 250 mg Documented by: Pantoprazole Sodium (Protonix) 40 mg PO 0600 [facility] Last Admin: 11/03/19 06:49 Dose: 40 mg Documented by: Potassium Chloride (Klor-Con M20) 20 meq PO DAILY [facility] Last Admin: 11/03/19 08:08 Dose: 20 meq Documented by: Tramadol HCl (Ultram) 50 mg PO 0800,1400,2000 [facility] Last Admin: 11/03/19 08:05 Dose: 50 mg Documented by: Discontinued Medications Acetaminophen (Tylenol Extra Strength) 500 mg PO Q6H [facility] Last Admin: 10/23/19 13:15 Dose: 500 mg Documented by: Acetaminophen (Tylenol Extra Strength) 650 mg PO Q6H [facility] Alprazolam (Xanax) 0.25 mg PO BID PRN PRN Reason: Anxiety Last Admin: 10/20/19 07:47 Dose: 0.25 mg Documented by: Ciprofloxacin (Ciprofloxacin Hcl) 250 mg PO BID [facility] Stop: 10/18/19 21:00 Last Admin: 10/18/19 20:01 Dose: 250 mg Documented by: Escitalopram Oxalate (Lexapro) 10 mg PO QPM [facility] Last Admin: 10/18/19 17:41 Dose: 10 mg Documented by: Ibuprofen (Motrin) 200 mg PO Q6H [facility] Last Admin: 10/19/19 06:03 Dose: 200 mg Documented by: Lidocaine (Lidoderm 5%) 1,400 mg TOP DAILY [facility] Last Admin: 10/22/19 08:08 Dose: 1,400 mg Documented by: Lidocaine (Lidoderm 5%) 700 mg TRDERM DAILY [facility] Last Admin: 10/22/19 08:09 Dose: 700 mg Documented by: Methyl Salicylate (Icy Hot Cream) 0 gm TOP TID PRN PRN Reason: MUSCLE SORENESS Last Admin: 10/23/19 14:33 Dose: 1 applic Documented by: Miscellaneous Information (Remove Patch) 1 ea TRDERM Q24H [facility] Miscellaneous Information (Remove Patch) 1 ea TRDERM Q24H [facility] Last Admin: 10/22/19 21:08 Dose: 1 ea Documented by: Naproxen (Naprosyn) 250 mg PO Q12H PRN PRN Reason: Pain Tramadol HCl (Ultram) 50 mg PO Q6H PRN PRN Reason: Pain (moderate 4-6) Last Admin: 10/18/19 08:46 Dose: 50 mg Documented by: Tramadol HCl (Ultram) 50 mg PO Q6H [facility] Last Admin: 10/19/19 08:27 Dose: Not Given Documented by: Tramadol HCl (Ultram) 50 mg PO ONETIME ONE Stop: 10/19/19 22:16 Last Admin: 10/19/19 23:00 Dose: Not Given Documented by: Tramadol HCl (Ultram) 50 mg PO BID PRN PRN Reason: Pain Last Admin: 10/20/19 10:08 Dose: 50 mg Documented by: Tramadol HCl (Ultram) 50 mg PO DAILY PRN PRN Reason: PAIN Last Admin: 10/23/19 07:50 Dose: 50 mg Documented by: Tramadol HCl (Ultram) 50 mg PO BID [facility] Last Admin: 10/23/19 10:05 Dose: Not Given Documented by: Tramadol HCl (Ultram) 50 mg PO TID [facility] Vit C/Vit E/Zinc/Copper/Lutein (Ocuvite Lutein) 1 each PO DAILY [facility] Last Admin: 10/15/19 12:37 Dose: Not Given Documented by: - Exam General: Alert, Oriented, Cooperative Lungs: Clear to Auscultation, Normal Respiratory Effort Cardiovascular: Regular Rate, Regular Rhythm, No Murmurs Extremities: No Pedal Edema, Other (Amputation above the knee on right side leg) Psy/Mental Status: Alert, Normal Affect, Normal Mood Sepsis Event Note - Evaluation Sepsis Screening Result: No Definite Risk - Focused Exam Vital Signs: Vital Signs Temp Pulse Resp BP Pulse Ox 11/03/19 07:52 97.1 F 84 16 148/84 H 97 - Problem List & Annotations (1) Anxiety SNOMED Code(s): 68953105 Code(s): F41.9 - ANXIETY DISORDER, UNSPECIFIED Status: Acute Current Vi sit: Yes (2) Atrial fibrillation SNOMED Code(s): 28234578 Code(s): I48.91 - UNSPECIFIED ATRIAL FIBRILLATION Status: Acute Current Visit: Yes (3) CAD (coronary artery disease) SNOMED Code(s): 69912264 Code(s): I25.10 - ATHSCL HEART DISEASE OF [place] CORONARY ARTERY W/O ANG PCTRS Status: Acute Current Visit: Yes (4) Depression SNOMED Code(s): 03897651 Code(s): F32.9 - MAJOR DEPRESSIVE DISORDER, SINGLE EPISODE, UNSPECIFIED Status: Acute Current Visit: Yes (5) Diastolic CHF SNOMED Code(s): 157134607, 657383627 Code(s): I50.30 - UNSPECIFIED DIASTOLIC (CONGESTIVE) HEART FAILURE Status: Acute Current Visit: Yes (6) Fall SNOMED Code(s): 9221472, 543441869 Code(s): W19.XXXA - UNSPECIFIED FALL, INITIAL ENCOUNTER Status: Acute Current Visit: Yes (7) Fracture of pelvic bone without disruption of posterior arch of pelvic ring SNOMED Code(s): 720261123 Code(s): S32.9XXA - FRACTURE OF UNSP PARTS OF LUMBOSACRAL SPINE AND PELVIS, INIT Status: Acute Current Visit: Yes (8) History of intracranial hemorrhage SNOMED Code(s): 73566116423516385 Code(s): Z86.79 - PERSONAL HISTORY OF OTHER DISEASES OF THE CIRCULATORY SYSTEM Status: Acute Current Visit: Yes (9) Status post above-knee amputation of right lower extremity SNOMED Code(s): 722798284901503, 15673531, 273352804063605 Code(s): Z89.611 - ACQUIRED ABSENCE OF RIGHT LEG ABOVE KNEE Status: Acute Current Visit: Yes - Problem List Review Problem List Initiated/Reviewed/Updated: Yes - My Orders Last 24 Hours: My Active Orders 11/03/19 08:36 Ready for Discharge [RC] PER UNIT ROUTINE - Plan Plan:: 1. Discharge her to home health with PT/OT. She will remain on increase Lexapro 20 mg a day, Naprosyn 250 mg take, gabapentin her milligrams at at bedtime and tramadol 3 times a day. He was also placed on Xanax for anxiety. She was go home on that hopefully Lexapro help her anxiety and depression which is home and she can wean off that.
--- NOTE | 2019-11-03 09:24 | PCM.DCSUM1 ---
Discharge Summary - Hospital Course Free Text/Narrative:: Swing bed course-patient was admitted and started on OT/PT for rehabilitation. She does have a right [id number] amputation. She was placed on tramadol and then Naprosyn 250 and gabapentin before bedtime to control her pain. Then adequate pain control was had. She also is very emotional and anxious. The doctor at the time increase her Lexapro from 10 mg 20 mg started her on Xanax 0.25 mg 3 times a day when necessary. That started improved also. Patient still had a little bit of pain in her right leg but her back was much better. She was getting around much better felt like going home. Her hemoglobin was 11.2 which is low. She had 5-10 red blood cells in her urine. She will go home on home health/PT/OT. Recheck with her primary provider Tyson cortes in 1 week. Brief History: Elaina transferred from [facility] for swing bed placement for rehab services. She sustained a fall on 10/10, this had been her second fall within the past week, was found to have left sacral fracture that extends into the left SI joint, Orthopedic recommended conservative management with PT/OT. She found to have UTI with E. coli., was started on Ciprofloxacin 250 mg bid on 10/11 evening, received 4 doses at [facility], last dose this morning. She had hypokalemia which was corrected during her acute stay. Hemoglobin remained stable at 10. She has bruising on her left buttock/sacral area, left greene. 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 Lives independently at home alone, plan to go home with her daughter once ready for discharge. Pain has been controlled with Lidocaine patches(2) to sacral area, Tylenol and Tramadol as needed. She last took Tramadol this morning about 945 per patient and took 2 Tylenol at 0574-1958 prior to arrival to [place]. She is very hard of hearing, has bilateral hearing aids in place. Diagnosis: Stroke: No - Discharge Data Discharge Date: 11/03/19 Discharge Disposition: Home, W Home Health Agency 06 Condition: Good - Referral to Home Health Date of Face to Face Encounter: 11/03/19 Reason for Homebound Status: Sacral fracture, amputation, old age and weakness Primary Care Physician: PCP Not In Area Skilled Need: Home health nurse/PT/OT. Strengthening, medication management, home safety, ADLs - Discharge Diagnosis/Problem(s) (1) Anxiety SNOMED Code(s): 97848837 ICD Code: F41.9 - ANXIETY DISORDER, UNSPECIFIED Status: Acute Current Visit: Yes (2) Atrial fibrillation SNOMED Code(s): 45910168 ICD Code: I48.91 - UNSPECIFIED ATRIAL FIBRILLATION Status: Acute Current Visit: Yes (3) CAD (coronary artery disease) SNOMED Code(s): 66236605 ICD Code: I25.10 - ATHSCL HEART DISEASE OF [place] CORONARY ARTERY W/O ANG PCTRS Status: Acute Current Visit: Yes (4) Depression SNOMED Code(s): 73667297 ICD Code: F32.9 - MAJOR DEPRESSIVE DISORDER, SINGLE EPISODE, UNSPECIFIED Status: Acute Current Visit: Yes (5) Diastolic CHF SNOMED Code(s): 960198212, 895729648 ICD Code: I50.30 - UNSPECIFIED DIASTOLIC (CONGESTIVE) HEART FAILURE Status: Acute Current Visit: Yes (6) Fall SNOMED Code(s): 6149952, 202616039 ICD Code: W19.XXXA - UNSPECIFIED FALL, INITIAL ENCOUNTER Status: Acute Current Visit: Yes (7) Fracture of pelvic bone without disruption of posterior arch of pelvic ring SNOMED Code(s): 287552304 ICD Code: S32.9XXA - FRACTURE OF UNSP PARTS OF LUMBOSACRAL SPINE AND PELVIS, INIT Status: Acute Current Visit: Yes (8) History of intracranial hemorrhage SNOMED Code(s): 46493904740073912 ICD Code: Z86.79 - PERSONAL HISTORY OF OTHER DISEASES OF THE CIRCULATORY SYSTEM Status: Acute Current Visit: Yes (9) Status post above-knee amputation of right lower extremity SNOMED Code(s): 527196391618438, 05875737, 649929969038083 ICD Code: Z89.611 - ACQUIRED ABSENCE OF RIGHT LEG ABOVE KNEE Status: Acute Current Visit: Yes - Patient Summary/Data Consults: Consultations 10/16/19 06:00 OT Evaluation and Treatment [CONS] Routine Please Evaluate and Treat. OT Reason for Consult: ADL's This query below is only for informational purposes and is not editable. PT Evaluation and Treatment [CONS] Routine Please Evaluate and Treat. PT Reason for Consult: Ambulation This query below is only for informational purposes and is not editable. - Patient Instructions Diet: Low Sodium Activity: As Tolerated Driving: Do Not Drive Showering/Bathing: May Shower Notify Provider of: Fever, Increased Pain, Swelling and Redness, Drainage, Nausea and/or Vomiting Other/Special Instructions: 1. Recheck with her primary provider in one week. 2. PT/OT/home health nurse - Discharge Plan Prescriptions/Med Rec: ALPRAZolam [Alprazolam] 0.025 gm PO TID PRN #30 powder PRN Reason: Anxiety Cyclobenzaprine [Flexeril] 5 mg PO TID PRN #0 tablet PRN Reason: Muscle Spasm Escitalopram Oxalate [Lexapro] 20 mg PO DAILY #30 tablet Naproxen [Naprosyn] 250 mg PO BID #60 tablet Gabapentin [Neurontin] 100 mg PO BEDTIME PRN #0 cap PRN Reason: Pain traMADol [Ultram] 50 mg PO 0800,1400,2000 #60 tablet Home Medications: Home Meds Aspirin [Ecotrin EC] 325 mg PO BEDTIME 10/14/19 [History] Cholecalciferol (Vitamin D3) [Vitamin D3] 2,000 unit PO DAILY 10/14/19 [History] Docusate Sodium [Colace] 100 mg PO BID PRN 10/14/19 [History] Furosemide 80 mg PO DAILY 10/14/19 [History] Glycerin/Propylene Glycol [Artificial Tears Drops] 1 drop EYEBOTH TID PRN 10/14/19 [History] Lutein/Min/Vit C/Vit E Acetate [Ocuvite Lutein] 1 cap PO DAILY 10/14/19 [History] Multivitamin [Multivitamins] 1 each PO DAILY 10/14/19 [History] Pantoprazole [ProTONIX] 40 mg PO DAILY 10/14/19 [History] Potassium Chloride 20 meq PO DAILY 10/14/19 [History] ALPRAZolam [Alprazolam] 0.025 gm PO TID PRN #30 powder 11/03/19 [Rx] Acetaminophen [Tylenol] 650 mg PO Q6H tablet 11/03/19 [Rx] Beta-Carotene(A) w/C & E/Min [Prosight] 1 tab PO DAILY tablet 11/03/19 [Rx] Carboxymethylcellulose Sodium [Refresh Tears 0.5%] 0 ml EYEBOTH TID PRN bottle 11/03/19 [Rx] Cyclobenzaprine [Flexeril] 5 mg PO TID PRN #0 tablet 11/03/19 [Rx] Escitalopram Oxalate [Lexapro] 20 mg PO DAILY #30 tablet 11/03/19 [Rx] Gabapentin [Neurontin] 100 mg PO BEDTIME PRN #0 cap 11/03/19 [Rx] Menthol/Methyl Salicylate [Icy Hot] 0 gm TOP TID tube 11/03/19 [Rx] Naproxen [Naprosyn] 250 mg PO BID #60 tablet 11/03/19 [Rx] Polyvinyl Alcohol/Povidone [Refresh] 0 each EYEBOTH TID PRN box 11/03/19 [Rx] traMADol [Ultram] 50 mg PO 0800,1400,2000 #60 tablet 11/03/19 [Rx] - Discharge Summary/Plan Comment DC Time >30 min.: No - Patient Data Vitals - Most Recent: Last Vital Signs Temp 97.1 F 11/03/19 07:52 Pulse 84 11/03/19 07:52 Resp 16 11/03/19 07:52 BP 148/84 H 11/03/19 07:52 Pulse Ox 97 11/03/19 07:52 Weight - Most Recent: 132 lb 8 oz Med Orders - Current: Current Medications Acetaminophen (Tylenol) 650 mg PO Q6H [facility] Last Admin: 11/03/19 06:49 Dose: 650 mg Documented by: Alprazolam (Xanax) 0.25 mg PO TID PRN PRN Reason: anxiety Last Admin: 11/02/19 20:38 Dose: 0.25 mg Documented by: Artificial Tears (Refresh Tears 0.5%) 0 ml EYEBOTH TID PRN PRN Reason: Dry Eyes Artificial Tears (Refresh) 0 each EYEBOTH TID PRN PRN Reason: Dry Eyes Aspirin (Ecotrin) 325 mg PO QPM [facility] Last Admin: 11/02/19 16:54 Dose: 325 mg Documented by: Cholecalciferol (Vitamin D3) 50 mcg PO DAILY [facility] Last Admin: 08/21/20 08:09 Dose: 50 mcg Documented by: Cyclobenzaprine HCl (Flexeril) 5 mg PO TID PRN PRN Reason: Muscle Spasm Last Admin: 11/03/19 08:06 Dose: 5 mg Documented by: Docusate Sodium (Colace) 100 mg PO BID PRN PRN Reason: Constipation Last Admin: 10/18/19 08:47 Dose: 100 mg Documented by: Escitalopram Oxalate (Lexapro) 20 mg PO QPM [facility] Last Admin: 11/02/19 16:54 Dose: 20 mg Documented by: Furosemide (Lasix) 80 mg PO DAILY [facility] Last Admin: 11/03/19 08:08 Dose: 80 mg Documented by: Gabapentin (Neurontin) 100 mg PO BEDTIME PRN PRN Reason: Pain Last Admin: 11/02/19 20:38 Dose: 100 mg Documented by: Methyl Salicylate (Icy Hot Cream) 0 gm TOP TID [facility] Last Admin: 11/03/19 08:08 Dose: 1 applic Documented by: Multivitamins/Minerals (Prosight) 1 tab PO DAILY [facility] Last Admin: 11/03/19 08:09 Dose: 1 tab Documented by: Multivitamins/Minerals/Vitamin C (Tab-A-Manuel) 1 tab PO DAILY [facility] Last Admin: 11/03/19 08:09 Dose: 1 tab Documented by: Naproxen (Naprosyn) 250 mg PO BID [facility] Last Admin: 11/03/19 08:09 Dose: 250 mg Documented by: Pantoprazole Sodium (Protonix) 40 mg PO 0600 [facility] Last Admin: 11/03/19 06:49 Dose: 40 mg Documented by: Potassium Chloride (Klor-Con M20) 20 meq PO DAILY [facility] Last Admin: 11/03/19 08:08 Dose: 20 meq Documented by: Tramadol HCl (Ultram) 50 mg PO 0800,1400,2000 [facility] Last Admin: 11/03/19 08:05 Dose: 50 mg Documented by: Discontinued Medications Acetaminophen (Tylenol Extra Strength) 500 mg PO Q6H [facility] Last Admin: 10/23/19 13:15 Dose: 500 mg Documented by: Acetaminophen (Tylenol Extra Strength) 650 mg PO Q6H [facility] Alprazolam (Xanax) 0.25 mg PO BID PRN PRN Reason: Anxiety Last Admin: 10/20/19 07:47 Dose: 0.25 mg Documented by: Ciprofloxacin (Ciprofloxacin Hcl) 250 mg PO BID [facility] Stop: 10/18/19 21:00 Last Admin: 10/18/19 20:01 Dose: 250 mg Documented by: Escitalopram Oxalate (Lexapro) 10 mg PO QPM [facility] Last Admin: 10/18/19 17:41 Dose: 10 mg Documented by: Ibuprofen (Motrin) 200 mg PO Q6H [facility] Last Admin: 10/19/19 06:03 Dose: 200 mg Documented by: Lidocaine (Lidoderm 5%) 1,400 mg TOP DAILY [facility] Last Admin: 10/22/19 08:08 Dose: 1,400 mg Documented by: Lidocaine (Lidoderm 5%) 700 mg TRDERM DAILY [facility] Last Admin: 10/22/19 08:09 Dose: 700 mg Documented by: Methyl Salicylate (Icy Hot Cream) 0 gm TOP TID PRN PRN Reason: MUSCLE SORENESS Last Admin: 10/23/19 14:33 Dose: 1 applic Documented by: Miscellaneous Information (Remove Patch) 1 ea TRDERM Q24H [facility] Miscellaneous Information (Remove Patch) 1 ea TRDERM Q24H [facility] Last Admin: 10/22/19 21:08 Dose: 1 ea Documented by: Naproxen (Naprosyn) 250 mg PO Q12H PRN PRN Reason: Pain Tramadol HCl (Ultram) 50 mg PO Q6H PRN PRN Reason: Pain (moderate 4-6) Last Admin: 10/18/19 08:46 Dose: 50 mg Documented by: Tramadol HCl (Ultram) 50 mg PO Q6H [facility] Last Admin: 10/19/19 08:27 Dose: Not Given Documented by: Tramadol HCl (Ultram) 50 mg PO ONETIME ONE Stop: 10/19/19 22:16 Last Admin: 10/19/19 23:00 Dose: Not Given Documented by: Tramadol HCl (Ultram) 50 mg PO BID PRN PRN Reason: Pain Last Admin: 10/20/19 10:08 Dose: 50 mg Documented by: Tramadol HCl (Ultram) 50 mg PO DAILY PRN PRN Reason: PAIN Last Admin: 10/23/19 07:50 Dose: 50 mg Documented by: Tramadol HCl (Ultram) 50 mg PO BID [facility] Last Admin: 10/23/19 10:05 Dose: Not Given Documented by: Tramadol HCl (Ultram) 50 mg PO TID [facility] Vit C/Vit E/Zinc/Copper/Lutein (Ocuvite Lutein) 1 each PO DAILY [facility] Last Admin: 10/15/19 12:37 Dose: Not Given Documented by: *Q Meaningful Use (DIS) - VTE *Q VTE Pharmacological Contraindications *Q: Risk of Bleeding VTE Anticoagulation Contraindications: Medical/Procedure Contrai
== END 2019-11-03 11:25 | disposition home health service (06) | DRG 551 ==
LOC: FB.MS 12:45
PROVIDERS: ADMIT Family Medicine; ATTEND Family Medicine
DX: S32.10XA Unspecified fracture of sacrum, initial encounter for closed fracture (principal); I50.31 Acute diastolic (congestive) heart failure; S32.302A Unspecified fracture of left ilium, initial encounter for closed fracture; N39.0 Urinary tract infection, site not specified; I11.0 Hypertensive heart disease with heart failure; M19.90 Unspecified osteoarthritis, unspecified site; B96.20 Unspecified Escherichia coli [E. coli] as the cause of diseases classified elsewhere; I25.10 Atherosclerotic heart disease of native coronary artery without angina pectoris; F32.9 Major depressive disorder, single episode, unspecified; F41.9 Anxiety disorder, unspecified; I48.91 Unspecified atrial fibrillation; Z89.611 Acquired absence of right leg above knee; Z86.79 Personal history of other diseases of the circulatory system; Z88.6 Allergy status to analgesic agent; Z88.5 Allergy status to narcotic agent; Z88.8 Allergy status to other drugs, medicaments and biological substances; Z79.82 Long term (current) use of aspirin; Z79.899 Other long term (current) drug therapy; Z98.49 Cataract extraction status, unspecified eye; W19.XXXA Unspecified fall, initial encounter
CPT/HCPCS: 36415; 51701; 70450; 80048; 81001; 85025; 97110-GO; 97110-GP; 97161-GP; 97165-GO; 97530-GO; 97530-GP; 97535-GO; 97542-GO; A9270-GY